=== PATIENT | male | born 1960 | race African-American/Black ===

== ENCOUNTER 2022-12-14 11:07 | Outpatient (CLI) | payer OTHER ==
[~2022-12-14 11:07] MED LIST: GABAPENTIN100 MG PO; GABAPENTIN800 MG PO; METFORMIN HCL500 MG PO; MICARDIS80 MG PO; NABUMETONE500 MG PO; ORPH100T PO; PERCOCET 5/3251 TAB PO; XARELTO10 MG PO
== END 2022-12-14 11:30 | disposition home or self-care (01) ==
LOC: RAD 11:07
PROVIDERS: ATTEND Orthopaedic Surgery
DX: M25.561 Pain in right knee (principal); M25.562 Pain in left knee